=== PATIENT | male | born 1975 | race African-American/Black ===

== ENCOUNTER → 2016-12-05 | Outpatient (CLI) | payer OTHER ==
[~2016-12-05] MED LIST: ALLEGRA ALLERG180 MG PO; ASPIRIN ENTERI325 M1 PO; CARDIZEM CD240 MG PO; CATAPRES0.3 MG PO; CLONIDINE PO; FERROUS GLUCON324 M1; HYDROCODON-ACE1 EAC5 PO; NORCO 10-325 TA1 TAB PO; PRINIVIL10 MG PO; TOPROL XL50 MG PO; VICODIN PO; VITAMIN B125000 MCG PO; VITAMIN D35000 UNIT PO
--- NOTE | ~2016-12-05 | CR63 ---
[facility] A Service of [facility] RADIOLOGY TEXT RESULTS PATIENT: ANN CALIXTO LOCATION: [facility] : 73 UNIT #: [id number] AGE: [address]: Roland Georges MD SEX: M ORDER DR: [id number] [facility] [address] [place], [place] [address] [id number] O MR#: [id number] Acc #: [id number] NAME: ANN CALIXTO : 1975 SEX: M STUDY DATE/TIME: 12/05/2016 8:59 UNIT: [facility] ROOM: STUDY DESCRIPTION: CR Chest 2 View Attending Physician: Roland Georges M.D. Referring Physician: Roland Georges M.D. Ordering Physician: Roland Georges M.D. Primary Care Physician: Deon Cunha M.D. MEDICAL IMAGING REPORT This report is preliminary unless electronic signature is present EXAM Chest 12/05/2016. HISTORY 41-year-old male patient preop right total hip arthroplasty. Osteoarthritis right hip. FINDINGS Two-view chest demonstrates normal heart size. Aorta is mildly ectatic. Small calcified bilateral hilar nodes present. Lungs are expanded and clear. IMPRESSION Mild thoracic aortic ectasia. No acute chest finding. Dictated by... Eleazar Melo M.D. THIS IS AN ELECTRONICALLY VERIFIED REPORT Eleazar Melo M.D. at 12/05/2016 2:21 PM Ten TD: 12/05/2016 13:31 JOB #: [id number] MEDICAL IMAGING REPORT COPY
--- NOTE | ~2016-12-05 | EKG ---
PATIENT: ANN CALIXTO UNIT #: [id number] Ventricular Rate: 50 BPM Atrial Rate: 50 BPM P-R Interval: 170 ms QRS Duration: 94 ms Q-T Interval: 456 ms QTC Calculation(Bezet): 415 ms P [place]: 34 degrees Calculated R [place]: -2 degrees Calculated T [place]: 12 degrees Diagnosis Line: Sinus bradycardia Diagnosis Line: Voltage criteria for left ventricular hypertrophy Diagnosis Line: Nonspecific ST and T wave abnormality Diagnosis Line: Abnormal ECG Diagnosis Line: No previous ECGs available Diagnosis Line: Confirmed by JORGE JUAREZ MD ([id number]) on Diagnosis Line: 12/06/2016 2:21:15 PM INTERPRETING MD: ANN BAKER
[2016-12-05 08:27] LABS: URINE APPEARANCE CLEAR; URINE BILIRUBIN NEG (NEG); URINE BLOOD NEG (NEG); URINE COLOR YELLOW; URINE GLUCOSE NEG (NEG); URINE KETONE NEG (NEG); URINE LEUKOCYTE ESTERASE NEG (NEG); URINE NITRATE NEG (NEG); URINE PH 5.5 (5-8); URINE PROTEIN 3+ (NEG); URINE SPECIFIC GRAVITY 1.027 (1.003-1.035)
[2016-12-05 08:29] LABS: URBCS1 AUWI 0-2 /[HPF] (0-2); URINE BACTERIA AUWI NEG (NEGATIVE); URINE SQUAMOUS EPITHELIAL CELL NONE SEEN /[HPF]; UWBCS1 AUWI 0-2 (0-5)
[2016-12-05 08:30] LABS: CULTURE INDICATED? NO; HEMOGLOBIN 13.5 gm/dL (13.0-16.0); MEAN CELL VOLUME 73.7 FL (83-96); MEAN CORPUSCULAR HEMOGLOBIN 23.2 PG (28-34); MEAN CORPUSCULAR HGB CONC 31.4 g/dL (30-36); MEAN PLATELET VOLUME 8.9 FL (6.5-11.5); RED BLOOD COUNT 5.83 X10e (3.90-5.60); RED CELL DISTRIBUTION WIDTH 14.9 % (11.0-15.5); WHITE BLOOD COUNT 5.2 X10e3 (4.0-10.5)
[2016-12-05 08:37] LABS: PROTHROMBIN TIME (PATIENT) 10.7 SECONDS (9.6-11.5)
[2016-12-05 09:16] LABS: ALBUMIN SERUM 4.1 g/dL (3.5-5.0); BILIRUBIN,TOTAL 0.5 mg/dL (0.2-2.0); BUN/CREATININE RATIO 9.04; CREATININE SERUM 2.1 mg/dL (0.6-1.4); GLOM FILT RATE Estimated 44.8 mL/min (>60); PROTEIN TOTAL SERUM 7.9 g/dL (6.0-8.3)
== END | disposition home or self-care (01) ==
LOC: CAMB 07:23
PROVIDERS: Orthopaedic Surgery
DX: Z01.818 Encounter for other preprocedural examination (principal); M16.11 Unilateral primary osteoarthritis, right hip; I77.810 Thoracic aortic ectasia; I10 Essential (primary) hypertension; K21.9 Gastro-esophageal reflux disease without esophagitis
CPT/HCPCS: 36415; 71020; 80053; 81003; 85027; 85610; 86850; 86900; 86901; 87070; 93005

== ENCOUNTER 2016-12-19 05:49 | Inpatient (IN) | payer OTHER ==
--- NOTE | ~2016-12-19 | CR145 ---
[facility] A Service of [facility] RADIOLOGY TEXT RESULTS PATIENT: ANN CALIXTO LOCATION: [place] [id number] : 73 UNIT #: [id number] AGE: [address]: Roland Georges MD SEX: M ORDER DR: [id number] [facility] [address] [place], [place] [address] [id number] I MR#: [id number] Acc #: [id number] NAME: ANN CALIXTO : 1975 SEX: M STUDY DATE/TIME: UNIT: [facility] ROOM: [facility] STUDY DESCRIPTION: CR Hip 1 View Rt Attending Physician: Roland Georges M.D. Ordering Physician: Roland Georges M.D. Primary Care Physician: Deon Cunha M.D. MEDICAL IMAGING REPORT This report is preliminary unless electronic signature is present EXAM Right hip 2 views 12/19/2016 1023 hours HISTORY Right hip pain, postop right hip replacement today. COMPARISON None FINDINGS AP views of the right hip and right proximal femur were performed. Patient is postop total hip replacement with non screwed acetabular component and long stem noncemented femoral component in anatomic alignment. No fracture is seen. No surgical drain is seen. IMPRESSION Postop right hip replacement with non screwed acetabular component and noncemented long stem femoral component in anatomic alignment. There is no fracture or dislocation. No surgical drain is seen. Dictated by... Chelsea Rojas M.D. THIS IS AN ELECTRONICALLY VERIFIED REPORT Chelsea Rojas M.D. at 12/19/2016 2:29 PM SMM/to TD: 12/19/2016 11:28 JOB #: [id number] MEDICAL IMAGING REPORT Page 1 of 1 COPY
--- NOTE | ~2016-12-19 | CO ---
Unit #: [id number] #: [id number] Patient: ANN CALIXTO [id number] [address] [place], [place] [address] [id number] I MR#: [id number] NAME: ANN CALIXTO ROOM: [facility] Age: 41 Sex: M Admission Date: 12/19/2016 : 1975 Attending Physician: Roland Georges M.D. Primary Care Physician: Deon Cunha M.D. Requesting Physician: Roland Georges M.D. Consultation Date: 12/19/2016 CONSULTATION REPORT REASON FOR HOSPITALIZATION The patient is a 41-year-old black male with history of severe osteoarthritis of the bilateral hips, hypertension, chronic kidney disease stage 3, admitted for an elective right total hip replacement, the second one to be done in a few weeks on the left. He saw me preoperatively in the office at which time his blood pressure was elevated, adjustments were made in his medications. Upon follow up earlier last week, it was in good control and he was cleared for surgery. Currently, he is awake, alert and oriented x3 in no acute distress. is at the bedside. He has already had a meal and tolerated it well. PAST MEDICAL HISTORY 1. Hypertension. 2. Osteoarthritis. 3. Chronic kidney disease, stage 3. PAST SURGICAL HISTORY No significant surgical history. HOME MEDICATIONS 1. Vitamin D3 500 mg daily. 2. Ju 180 mg daily. 3. Cardizem CD 240 mg daily. 4. Prinivil 10 mg daily. 5. Toprol XL 50 mg b.i.d. 6. Clonidine 0.2 mg b.i.d. 7. B12 5000 mcg daily. ALLERGIES No known medical allergies. SOCIAL HISTORY Employed, . Nonsmoker, nondrinker, no street drug use. FAMILY HISTORY Noncontributory. PHYSICAL EXAMINATION VITAL SIGNS: Temperature afebrile, pulse 65, respirations 18, blood pressure 148/78, O2 saturation 99% on 1 liter. HEENT: Unremarkable except for a nasal cannula in place. NECK: Supple without JVD, bruits, adenopathy, or thyromegaly. LUNGS: Clear to auscultation. HEART: Regular rhythm but is bradycardic with an S3 gallop or murmur. Unit #: [id number] #: [id number] Patient: ANN CALIXTO ABDOMEN: Large, soft, nondistended, nontender with positive bowel sounds and no hepatosplenomegaly. EXTREMITIES: No clubbing, cyanosis, or edema. : Deferred. RECTAL: Deferred. RIGHT LOWER EXTREMITY: Neurovascularly intact. DIAGNOSTIC STUDIES LABORATORY: PT/INR 1.0. CBC normal. CMP normal except for a creatinine of 2.1, GFR 44.8. Urinalysis normal except for 3+ protein. MRSA screen negative. IMAGING: Chest x-ray with no active disease. CARDIOVASCULAR: EKG sinus bradycardia at 50 beats per minute, nonspecific ST-T abnormality. No old EKGs for comparison. IMPRESSION 1. Status post right total hip replacement. 2. Osteoarthritis. 3. Hypertension. 4. Sinus bradycardia. 5. Chronic kidney disease, stage 3. 6. Proteinuria. PLAN 1. Medications have been resumed. 2. Incentive spirometry is ordered. 3. DVT prophylaxis is in place. 4. Will recheck his BMP in the morning. 5. Will follow along for any problems that arise. Dictated by... Deon Cunha M.D. PAUL/stanford TD: 12/19/2016 17:31 JOB #: [id number] CONSULTATION REPORT Page 1 of 1 X Deon Cunha MD X CONSULTATION REPORT
--- NOTE | ~2016-12-19 | DS ---
Unit #: [id number] #: [id number] Patient: ANN CALIXTO [id number] [place] [id number] [facility]. [place], [place] [address] [id number] I MR#: [id number] NAME: ANN CALIXTO ROOM: [facility] Age: 41 Sex: M Admission Date: 12/19/2016 : 1975 Discharge Date: 12/20/2016 Attending Physician: Roland Georges M.D. Primary Care Physician: Deon Cunha M.D. DISCHARGE SUMMARY CONSULTING PHYSICIAN HIPS for medical management. REASON FOR ADMISSION Severe osteoarthritis of his right hip. PROCEDURE Right total hip arthroplasty. HOSPITAL COURSE The patient was admitted to [facility] with a history of severe osteoarthritis of the right hip. The patient had undergone the above procedure. The patient tolerated the procedure well. There were no apparent complications. The patient, today, is in stable condition. His temperature is 98.4, blood pressure 165/84. His heart rate was 62, respirations 18. Incision is healing well, neurovascularly intact. He had 2+ pulses in his lower extremities. The plan will be to send him home later today if okay with all and safe with physical therapy. DISPOSITION Home with [facility]. MEDICATIONS Per med rec list. PERTINENT LABS His creatinine is 2.1. He has a history of chronic renal failure. His hemoglobin is 11.2, WBC is 5.2. FOLLOWUP INSTRUCTIONS The patient will be on aspirin 325 mg twice a day for DVT prophylaxis. He will need his skin pily removed on 01/02/2017 and Steri-Strips placed for one week. The patient should not shower until the day after pily removed. Patient should wear GRACIELA hose during the day and off at night. Patient should not drive until see by Dr. Georges in six weeks. The patient will participate in physical therapy. Evaluate and treat for home safety, knowledge of home exercise program, dislocation precautions. Progressive ambulation, begin with a walker and progress to a cane as tolerated. Unit #: [id number] #: [id number] Patient: ANN CALIXTO Dictated by... Saul Tinajero P.A.-C- for Roland Georges M.D. SHELLI/pat TD: 12/20/2016 07:54 JOB #: [id number] DISCHARGE SUMMARY Page 1 of 1 X X DISCHARGE SUMMARY
--- NOTE | ~2016-12-19 | OR ---
Unit #: [id number] #: [id number] Patient: ANN CALIXTO [id number] [place] [id number] [facility]. [place], [place] [address] [id number] I MR#: [id number] NAME: ANN CALIXTO ROOM: [facility] Date of Procedure: 12/19/2016 Admission Date: 12/19/2016 Surgeon: Roland Georges M.D. : 1975 Attending Physician: Roland Georges M.D. Primary Care Physician: Deon Cunha M.D. OPERATIVE REPORT PREOPERATIVE DIAGNOSIS Primary localized osteoarthritis of the right hip. POSTOPERATIVE DIAGNOSIS Primary localized osteoarthritis of the right hip. PROCEDURE PERFORMED Right total hip. ASSISTANTS Tanvi and Derek. ESTIMATED BLOOD LOSS 500. ANESTHESIA General. INDICATIONS FOR PROCEDURE This is a 41-year-old with severe pain in the right hip. He has had pain for months. It has gotten progressively worse. It limits his activities of daily living such as standing, walking, and sleeping and he is brought to the hospital for right total hip. DESCRIPTION OF PROCEDURE The patient was brought to the holding room, given 2 g of Kefzol. This will be continued postop, but discontinued within 23 hours from the start time of surgery. The patient was then given a general anesthetic, placed in decubitus position with the right side up. The right hip was prepped and draped in a sterile fashion. Modified Aufranc incision was mapped out and made. The subcutaneous dissected away and the fascia split longitudinally. Short rotators taken down with the cautery unit. Posterior hip capsule was identified. This was T'd open. The hip was eventually dislocated posteriorly. The neck osteotomy performed and the head fragment removed. The femur was retracted anteriorly, but this was difficult. We had released the anterior capsule and after this was done, the labrum was debrided. The acetabulum was then reamed up to a 51. A 52 mm sector cup with Gription was inserted in 40 degrees of abduction and 20 degrees of forward flexion. We then positioned the neutral 36 trial liner. The piriformis sinus was cleaned out with a rongeur and knife. Starter reamers were used up to a size 5 with the broaches, the largest one we could get in was a 4. We then positioned a high offset neck and Unit #: [id number] #: [id number] Patient: ANN CALIXTO once a high offset neck was in place, we found we needed a -2 head to give appropriate leg length and stability. We then removed all the trials. The real liner was impacted into the cup. The periacetabular region was injected with ropivacaine. The stem was impacted into 20 degrees of anteversion and then the trial head was applied once again. The -2, 36 head was the appropriate leg length. The hip was stable, so this was opened, applied to the trunnion. The hip was reduced. The wound irrigated out. The rest of the ropivacaine mixture was injected and then the capsule was repaired with 0 Vicryl, the fascia with a running #1 Stratafix suture. The subcutaneous was closed with 0 and 2-0 Vicryl and pily in the skin. Abduction pillow positioned and the general anesthetic reversed. Dictated by... Mary Olvera/alan TD: 12/20/2016 01:50 JOB #: [id number] OPERATIVE REPORT Page 1 of 1 X Roland Georges MD X PROCEDURE OPERATIVE NOTE
[~2016-12-19 05:49] MED LIST changes: -ASPIRIN ENTERI325 M1 PO; -FERROUS GLUCON324 M1; -HYDROCODON-ACE1 EAC5 PO; -NORCO 10-325 TA1 TAB PO
[2016-12-19 06:54] LABS: PROTHROMBIN TIME (PATIENT) 10.5 SECONDS (9.6-11.5)
[2016-12-19 17:31] LABS: HEMATOCRIT 38.6 % (38.0-50.0)
[2016-12-20 03:12] LABS: HEMATOCRIT 35.4 % (38.0-50.0); HEMOGLOBIN 11.2 gm/dL (13.0-16.0)
[2016-12-20 03:42] LABS: BUN/CREATININE RATIO 12.6; CALCIUM SERUM 8.7 mg/dL (8.4-10.2); CREATININE SERUM 2.3 mg/dL (0.6-1.4); GLOM FILT RATE Estimated 39.1 mL/min (>60); POTASSIUM 4.6 mmol/L (3.5-5.1)
[2016-12-20] MEDS ORDERED: ASPIRIN ENTERI325 M1 PO (13:59)
[2016-12-20] MEDS ORDERED: NORCO 10-325 TA1 TAB PO (14:00)
[2017-01-04] MEDS ORDERED: FERROUS GLUCON324 M1 (09:21)
== END 2016-12-20 14:57 | disposition home health service (06) | DRG 470 ==
LOC: CSUR 05:49 → CEDOF 07:10 → C4B 11:02
PROVIDERS: Internal Medicine; Orthopaedic Surgery
PROC: 0SR904Z Replacement of Right Hip Joint with Ceramic on Polyethylene Synthetic Substitute, Open Approach (ICD-10-PCS; principal; 2016-12-19 08:00)
DX: M16.0 Bilateral primary osteoarthritis of hip (principal); N18.3 Chronic kidney disease, stage 3 (moderate); E66.9 Obesity, unspecified; I12.9 Hypertensive chronic kidney disease with stage 1 through stage 4 chronic kidney disease, or unspecified chronic kidney disease; R80.9 Proteinuria, unspecified; R00.1 Bradycardia, unspecified; Z83.3 Family history of diabetes mellitus; Z82.49 Family history of ischemic heart disease and other diseases of the circulatory system; Z68.39 Body mass index [BMI] 39.0-39.9, adult; K21.9 Gastro-esophageal reflux disease without esophagitis; H91.90 Unspecified hearing loss, unspecified ear
CPT/HCPCS: 73501; 80048; 85014; 85018; 85610; 88304; 88311; 94760; 97110; 97116; 97161; 97165; C1776; J0131; J0171; J0690; J0735; J1100; J1170; J1885; J2250; J2370; J2405; J2795; J3010

== ENCOUNTER → 2017-01-04 | Outpatient (CLI) | payer OTHER ==
[~2017-01-04] MED LIST changes: +ASPIRIN ENTERI325 M1 PO; +FERROUS GLUCON324 M1; +HYDROCODON-ACE1 EAC5 PO; +NORCO 10-325 TA1 TAB PO
[2017-01-04 08:21] LABS: HEMATOCRIT 34.6 % (38.0-50.0); HEMOGLOBIN 10.9 gm/dL (13.0-16.0); MEAN CELL VOLUME 73.5 FL (83-96); MEAN CORPUSCULAR HEMOGLOBIN 23.1 PG (28-34); MEAN CORPUSCULAR HGB CONC 31.5 g/dL (30-36); MEAN PLATELET VOLUME 7.5 FL (6.5-11.5); RED BLOOD COUNT 4.7 X10e (3.90-5.60); RED CELL DISTRIBUTION WIDTH 14.7 % (11.0-15.5); WHITE BLOOD COUNT 7.6 X10e3 (4.0-10.5)
[2017-01-04 08:23] LABS: URINE APPEARANCE CLEAR; URINE BILIRUBIN NEG (NEG); URINE BLOOD NEG (NEG); URINE COLOR YELLOW; URINE GLUCOSE NEG (NEG); URINE KETONE NEG (NEG); URINE LEUKOCYTE ESTERASE NEG (NEG); URINE NITRATE NEG (NEG); URINE PH 5.5 (5-8); URINE PROTEIN TRACE (NEG); URINE SPECIFIC GRAVITY 1.011 (1.003-1.035); URINE UROBILINOGEN 0.2 MG/DL (NEG)
[2017-01-04 08:27] LABS: CULTURE INDICATED? NO
[2017-01-04 08:53] LABS: CALCIUM SERUM 9.4 mg/dL (8.4-10.2); GLOM FILT RATE Estimated 46.3 mL/min (>60); POTASSIUM 3.8 mmol/L (3.5-5.1)
== END | disposition home or self-care (01) ==
LOC: CAMB 07:08
PROVIDERS: Orthopaedic Surgery
DX: Z01.812 Encounter for preprocedural laboratory examination (principal); M16.12 Unilateral primary osteoarthritis, left hip; K21.9 Gastro-esophageal reflux disease without esophagitis; I10 Essential (primary) hypertension; R32 Unspecified urinary incontinence
CPT/HCPCS: 36415; 80048; 81003; 85027; 85610; 86850; 86900; 86901; 87070

== ENCOUNTER 2017-01-16 05:22 | Inpatient (IN) | payer OTHER ==
--- NOTE | ~2017-01-16 | OR ---
Unit #: [id number] #: [id number] Patient: ANN CALIXTO [id number] [address] [place], [place] [address] [id number] I MR#: [id number] NAME: ANN CALIXTO ROOM: 456 Date of Procedure: 01/16/2017 Admission Date: 01/16/2017 Surgeon: Roland Georges M.D. : 1975 Attending Physician: Roland Georges M.D. Primary Care Physician: Deon Cunha M.D. OPERATIVE REPORT PREOPERATIVE DIAGNOSIS Osteoarthritis of the left hip. POSTOPERATIVE DIAGNOSIS Osteoarthritis of the left hip. PROCEDURE PERFORMED Left total hip. ASSISTANTS Tanvi and Derek. ANESTHESIA General. ESTIMATED BLOOD LOSS 700 to 800 mL. INDICATIONS FOR PROCEDURE This is a 41-year-old with arthritis of the left hip. The pain limits his walking and standing. He has tried anti-inflammatories and injections with no relief of his discomfort. His x-rays show osteoarthritis. DESCRIPTION OF PROCEDURE The patient was brought to the operating room, given 3 g of Ancef. This will be continued postop, but discontinued within 23 hours the start time of surgery. He was then given a general anesthetic, placed in decubitus position with the left side up. Left hip was prepped and draped in a sterile fashion. A modified Aufranc incision was mapped out and made. The subcutaneous dissected away and the fascia split longitudinally. Short rotators were taken down with the cautery unit. Posterior hip capsule was identified and this was T'd open. The hip was dislocated. The neck osteotomy performed, and after the head fragment was removed and the labrum was debrided, the acetabulum was reamed with basket reamers up to a size 51. A 52 mm [place] Gription cup was inserted in 40 degrees of abduction and 20 degrees of forward flexion. A neutral 36 mm trial liner was placed in the cup. The patient then had the piriformis sinus cleaned out with a rongeur and a knife. Starter reamer passed down. Rigid reamers were used up to a size 4. Broaches were used up to a size 4 and the patient then had the reduction performed with a high offset neck and a -2, 36 head. The hip was reduced. Stability was appropriate. The wound was irrigated. The real liner was impacted into the cup. The Unit #: [id number] #: [id number] Patient: ANN CALIXTO periacetabular region was injected with ropivacaine mixture and the stem was impacted in 20 degrees of anteversion, and the -2, 36 head was applied. The hip was reduced. Stability was appropriate in all directions. The wound was irrigated with a dilute Betadine solution and bacitracin. The rest of the ropivacaine mixture was injected and then the wound was closed using 0 Ethibond in the capsule. The fascia was closed with a running #1 STRATAFIX suture. The subcutaneous was closed with 0 and 2-0 Vicryl and then pily in the skin. A sterile dressing was applied. Abduction pillow positioned, and the general anesthetic reversed. anesthesiologist assistant, Saul Tinajero, was present throughout the entire case. Dictated by... Mary Olvera/alan TD: 01/16/2017 21:41 JOB #: [id number] OPERATIVE REPORT Page 1 of 1 X Roland Georges MD PROCEDURE OPERATIVE NOTE
--- NOTE | ~2017-01-16 | CR144 ---
[facility] A Service of [facility] & [facility] RADIOLOGY TEXT RESULTS PATIENT: ANN CALIXTO LOCATION: [facility] [id number] : [birth year] UNIT #: [id number] AGE: [address]: Roland Georges MD SEX: M ORDER DR: [id number] [facility] [address] [place], [place] [address] [id number] I MR#: [id number] Acc #: [id number] NAME: ANN CALIXTO : 1975 SEX: M STUDY DATE/TIME: 01/16/2017 10:24 UNIT: [facility] ROOM: [facility] STUDY DESCRIPTION: CR Hip 1 View Lt Attending Physician: Roland Georges M.D. Ordering Physician: Roland Georges M.D. Primary Care Physician: Deon Cunha M.D. MEDICAL IMAGING REPORT This report is preliminary unless electronic signature is present EXAM Left hip series, 01/16/2017 HISTORY Postop. FINDINGS AP radiograph of the left hip is presented. Status post left hip arthroplasty. Orthopedic hardware normally located and aligned. A small amount of air in the operative bed. Surgical skin pily overlying the operative bed. The northway bony structures show no nonsurgical abnormality. Dictated by... Mario Bob M.D. THIS IS AN ELECTRONICALLY VERIFIED REPORT Mario Bob M.D. at 01/17/2017 10:29 AM MADISYN/pineda TD: 01/16/2017 12:06 JOB #: [id number] MEDICAL IMAGING REPORT Page 1 of 1 COPY
--- NOTE | ~2017-01-16 | CO ---
Unit #: [id number] #: [id number] Patient: ANN CALIXTO [id number] [address] [place], [place] [address] [id number] I MR#: [id number] NAME: ANN CALIXTO ROOM: 456 Age: 41 Sex: M Admission Date: 01/16/2017 : 1975 Attending Physician: Roland Georges M.D. Primary Care Physician: Deon Cunha M.D. Consultation Date: 01/16/2017 CONSULTATION REPORT HISTORY OF PRESENT ILLNESS This patient is a 41-year-old black male with history of hypertension, chronic kidney disease stage 3, severe osteoarthritis of bilateral hips. He was admitted last month for an elective right total hip replacement that went off fairly well without really any incident. He had a slight worsening of his renal function postop, which resolved. He developed some obvious postop anemia, treated with iron and improved. He is now back for his left total hip replacement, which he had done this morning. Currently, he is awake, alert, and oriented x3. is at the bedside. His pain seems to be well controlled, and we were consulted for medical management. ALLERGIES The patient has no known drug intolerances. MEDICATIONS His medications prior to admission; vitamin D 5000 units daily, Ju 180 mg daily, Cardizem CD 240 mg daily, Prinivil 40 mg daily, Toprol-XL 50 mg b.i.d., Catapres 0.2 mg t.i.d., B12 5000 mcg daily, enteric-coated aspirin 325 mg b.i.d., [place] 10/325 one-half to one tablet q.4 to 6 hours p.r.n. for pain, ferrous gluconate 324 mg b.i.d. PAST MEDICAL HISTORY Hypertension, osteoarthritis, chronic kidney disease stage 3. PAST SURGICAL HISTORY 1. Right total hip replacement, 12/19/2016. 2. Left total hip replacement, 01/16/2017. SOCIAL HISTORY He is employed and . Nonsmoker. Nondrinker. No street drug use. FAMILY HISTORY Noncontributory. PHYSICAL EXAMINATION GENERAL: He is awake, alert, and oriented x3. No acute distress. VITAL SIGNS: Temperature, not taken; respiratory rate, not taken. His pulse is 51, blood pressure 130/82, O2 sats 92%. HEENT: Unremarkable. NECK: Supple without JVD, bruits, adenopathy, or thyromegaly. CHEST: Clear to auscultation. HEART: Has a regular rhythm, but is bradycardic. There is no S3, gallop, or murmur appreciated. Unit #: [id number] #: [id number] Patient: ANN CALIXTO ABDOMEN: Soft, nondistended, nontender with positive bowel sounds. No hepatosplenomegaly. EXTREMITIES: Show no clubbing, cyanosis, or edema. Left lower extremity is neurovascularly intact. AND RECTAL: Deferred. NEUROLOGIC: Grossly intact. DIAGNOSTIC STUDIES LABORATORY RESULTS: CBC preop shows a hemoglobin of 11.2, platelet count of 490,000, normal white count. PT/INR was 1.0. HIV was done because of a needlestick in the operating room was nonreactive. Creatinine was 2.0 on 01/04/2017. IMPRESSION 1. Status post left total hip replacement. 2. Recent right total hip replacement. 3. Osteoarthritis. 4. Chronic kidney disease stage 3. 5. Hypertension. 6. Sinus bradycardia. 7. Anemia, postop. PLAN Medications have been reviewed. IV fluids were ongoing. We will follow his hemoglobin and creatinine in the postop period and address any other problems that arise. He is on routine DVT prophylaxis and incentive spirometry postop. Dictated by... Deon Cunha M.D. PAUL/alan TD: 01/16/2017 21:50 JOB #: [id number] CONSULTATION REPORT Page 1 of 1 X Deon Cunha MD X CONSULTATION REPORT
--- NOTE | ~2017-01-16 | DS ---
Unit #: [id number] #: [id number] Patient: ANN CALIXTO [id number] [place] [id number] [facility]. [place], [place] [address] [id number] I MR#: [id number] NAME: ANN CALIXTO ROOM: 456 Age: 41 Sex: M Admission Date: 01/16/2017 : 1975 Discharge Date: 01/17/2017 Attending Physician: Roland Georges M.D. Primary Care Physician: Deon Cunha M.D. DISCHARGE SUMMARY ADMITTING DIAGNOSIS Primary localized osteoarthritis of the left hip. DISCHARGE DIAGNOSES Primary localized osteoarthritis of the left hip. PROCEDURES IN HOSPITAL Left total hip. HOSPITAL COURSE Patient was admitted on 01/16/2017 and taken to the operating room where he underwent a left total hip replacement. Postoperatively, he has done well. He is comfortably on his oral pain medicine. His neurovascular exam was intact. He has been up ambulating, so he can be discharged home today. His hemoglobin is 9. We will give him a bolus of normal saline as his creatinine is 2.2 this morning but it was 2.0 on preadmission testing and he has known kidney disease. He is weight bearing as tolerated. He is to follow his posterior hip precautions. His medications are his routine home medicines, plus aspirin 325 b.i.d. and [place] for pain. His pily are to be removed two weeks postop. His condition on discharge is improved and his disposition is to home. We will repeat his creatinine on at home to be sure that it has come back down to the baseline. Dictated by... Roland Georges M.D. JASON/palak TD: 01/17/2017 10:18 JOB #: [id number] DISCHARGE SUMMARY Page 1 of 1 X Roland Georges MD X DISCHARGE SUMMARY
[~2017-01-16 05:22] MED LIST changes: -HYDROCODON-ACE1 EAC5 PO
[2017-01-16 06:28] LABS: HEMATOCRIT 36.6 % (38.0-50.0); HEMOGLOBIN 11.2 gm/dL (13.0-16.0); MEAN CELL VOLUME 73.7 FL (83-96); MEAN CORPUSCULAR HEMOGLOBIN 22.6 PG (28-34); MEAN CORPUSCULAR HGB CONC 30.7 g/dL (30-36); MEAN PLATELET VOLUME 7.8 FL (6.5-11.5); RED BLOOD COUNT 4.96 X10e (3.90-5.60); RED CELL DISTRIBUTION WIDTH 15.3 % (11.0-15.5); WHITE BLOOD COUNT 5.2 X10e3 (4.0-10.5)
[2017-01-16 06:42] LABS: PROTHROMBIN TIME (PATIENT) 10.8 SECONDS (9.6-11.5)
[2017-01-17 03:03] LABS: HEMATOCRIT 28.7 % (38.0-50.0); MEAN CORPUSCULAR HEMOGLOBIN 23.2 PG (28-34); MEAN CORPUSCULAR HGB CONC 31.4 g/dL (30-36); MEAN PLATELET VOLUME 7.5 FL (6.5-11.5); RED BLOOD COUNT 3.88 X10e (3.90-5.60); RED CELL DISTRIBUTION WIDTH 15.3 % (11.0-15.5)
[2017-01-17 03:05] LABS: WHITE BLOOD COUNT 10.9 X10e3 (4.0-10.5)
[2017-01-17 03:33] LABS: BUN/CREATININE RATIO 10.9; CALCIUM SERUM 8.7 mg/dL (8.4-10.2); CREATININE SERUM 2.2 mg/dL (0.6-1.4); GLOM FILT RATE Estimated 41.3 mL/min (>60); POTASSIUM 4.6 mmol/L (3.5-5.1)
[2017-01-17 11:08] LABS: TMH HEPATITIS B SURFACE AG -JH Negative (Negative); TMH HEPATITIS C AB - JH Negative (Negative)
[2017-01-17] MEDS ORDERED: HYDROCODON-ACE1 EAC5 PO (11:36)
== END 2017-01-17 12:25 | disposition home health service (06) | DRG 470 ==
LOC: CSUR 05:22 → CPACUOF 07:00 → C4B 10:01
PROVIDERS: Orthopaedic Surgery
PROC: 0SRB02Z Replacement of Left Hip Joint with Metal on Polyethylene Synthetic Substitute, Open Approach (ICD-10-PCS; principal; 2017-01-16 07:30)
DX: M16.12 Unilateral primary osteoarthritis, left hip (principal); N18.3 Chronic kidney disease, stage 3 (moderate); E66.9 Obesity, unspecified; Z96.641 Presence of right artificial hip joint; I12.9 Hypertensive chronic kidney disease with stage 1 through stage 4 chronic kidney disease, or unspecified chronic kidney disease; R00.1 Bradycardia, unspecified; D64.9 Anemia, unspecified; K21.9 Gastro-esophageal reflux disease without esophagitis
CPT/HCPCS: 73501; 80048; 85027; 85610; 86803; 87340; 87806; 94760; 94761; 97110; 97116; 97161; 97530; C1776; G8978-GP; G8979-GP; J0171; J0330; J0690; J0735; J1100; J1170; J1885; J2250; J2405; J2795; J3010